=== PATIENT | female | born 1980 | race Caucasian/White ===

== ENCOUNTER 2018-06-17 18:00 | Observation (INO) ==
[2018-06-17 18:46] LABS: PT Patient Result 10.9 SECS; Partial Thromboplastin Time 22.5 SECS (0-40)
[2018-06-17 18:52] LABS: Basophils % 0.6 % (0.0-0.8); Eosinophils # 0.2 10*3/uL (0.0-0.87); Eosinophils % 2.8 % (0.00-10.9); Hematocrit 29.7 VOL% (35.7-47.0); Immature Granulocytes % 0.3 %; Immature Granulocytes Absolute 0.02 #; Lymphocytes % 29.6 % (21.3-54.2); Mean Corpuscular HGB Conc 27.3 GM/DL (32-36); Mean Corpuscular Hemoglobin 17 PG (27-34); Mean Corpuscular Volume 60.5 FL (87-102); Monocytes # 0.5 10*3/uL (0.11-0.8); Monocytes % 7.6 % (1.7-12.7); Neutrophils % 59.1 % (38.7-73.9); Platelet Count 176 T/CUMM (130-400); Red Blood Count 4.91 MC/CUMM (3.8-5.5); Red Cell Distribution Width 21.1 % (9.3-17.3); White Blood Count 6.8 T/CUMM (4-12)
[2018-06-17 18:56] LABS: Hemoglobin 8.1 GM/DL (12.0-16.0)
[2018-06-17 19:00] LABS: Albumin 3.7 G/DL (3.4-5.0); Bilirubin,Total 0.5 MG/DL (0.2-1.0); Calcium 8.2 MG/DL (8.5-10.1); Osmolality,Calculated 286.1 MOS/KG (273-304); Total Protein 6.8 G/DL (6.4-8.3)
[2018-06-17] MEDS ORDERED: ALUM/MAG/SIMETH/LIDO VISC 1:1 30 ML BOTTLE PO STA (20:04)
[2018-06-17] MEDS ORDERED: ONDANSETRON 4 MG/2 ML VIAL IV STA (20:04)
[2018-06-17] MEDS ORDERED: MORPHINE 4 MG/1 ML VIAL IV STA (20:04)
[2018-06-17] MEDS ORDERED: NITROGLYCERIN 2% OINT 1 INCH/GM PACK TOP STA (20:04)
[2018-06-17 20:11] LABS: Anisocytosis 2+; Hypochromasia 3+; Ovalocytes 2+
[2018-06-17 20:13] LABS: Elliptocytes 1+
[2018-06-17 20:16] LABS: Poikilocytosis 1+
[2018-06-17 20:17] LABS: Platelet Estimate Adequate; Schistocytes Few
[2018-06-17] MEDS ORDERED: MAGNESIUM SULF RIDER 2 GM in PREMIX 1 EACH IV PRN (20:57)
[2018-06-17] MEDS ORDERED: ZALEPLON 5 MG CAPSULE PO PRN (20:57)
[2018-06-17] MEDS ORDERED: MAGNESIUM SULF RIDER 4 GM in PREMIX 1 EACH IV PRN (20:57)
[2018-06-17] MEDS ORDERED: diphenhydrAMINE CAP 25 MG CAPSULE PO PRN (20:57)
[2018-06-17] MEDS ORDERED: ACETAMINOPHEN 325 MG TABLET PO PRN (20:57)
[2018-06-17] MEDS ORDERED: NICOTINE 21 MG/24 HR PATCH TRANSDERM PRN (20:57)
[2018-06-17] MEDS ORDERED: ONDANSETRON 4 MG/2 ML VIAL IV PRN (20:57)
[2018-06-17 21:33] LABS: Risk Ratio 2.21; Thyroid Stimulating Hormone 0.986 uIU/ml (0.358-3.74)
[2018-06-18 00:59] LABS: Barbiturates Screen,Urine Negative (Negative); Benzodiazepines Screen,Urine Negative (Negative); Cannabinoid Screen,Urine Negative (Negative); Opiate Screen,Urine Positive (Negative); Phencyclidine Screen,Urine Negative (Negative)
[2018-06-18] MEDS: MORPHINE 4 MG/1 ML VIAL IV PRN ×2 (01:10→06:21)
[2018-06-18] MEDS ORDERED: PNEUMOCOCCAL VACCINE (23 VALENT) 0.5 ML VIAL IM ONE (03:59)
[2018-06-18 05:05] LABS: Calcium 7.9 MG/DL (8.5-10.1); Osmolality,Calculated 286.1 MOS/KG (273-304); Potassium 3.6 MMOL/L (3.5-5.1)
[2018-06-18 06:00] LABS: Basophils # 0.1 10*3/uL (0.0-0.2); Basophils % 0.9 % (0.0-0.8); Eosinophils # 0.2 10*3/uL (0.0-0.87); Eosinophils % 3.2 % (0.00-10.9); Immature Granulocytes % 0.4 %; Immature Granulocytes Absolute 0.03 #; Lymphocytes # 2.7 10*3/uL (1.4-4.0); Lymphocytes % 38.9 % (21.3-54.2); Mean Corpuscular Hemoglobin 17 PG (27-34); Mean Corpuscular Volume 60.4 FL (87-102); Monocytes # 0.6 10*3/uL (0.11-0.8); Monocytes % 8.7 % (1.7-12.7); Neutrophils # 3.3 10*3/uL (1.4-7.4); Neutrophils % 47.9 % (38.7-73.9); Platelet Count 150 T/CUMM (130-400); Red Blood Count 4.14 MC/CUMM (3.8-5.5); Red Cell Distribution Width 20.9 % (9.3-17.3); White Blood Count 6.9 T/CUMM (4-12)
[2018-06-18] MEDS ORDERED: SODIUM CHLORIDE 0.9% 1,000 ML IV PRN (07:03)
[2018-06-18 08:11] LABS: Hematocrit 25.9 VOL% (35.7-47.0)
[2018-06-18 08:12] LABS: Hemoglobin 7.1 GM/DL (12.0-16.0)
[2018-06-18] MEDS ORDERED: amLODIPine 10 MG TABLET PO SCH (09:00)
[2018-06-18] MEDS ORDERED: PANTOPRAZOLE 40 MG TABLET PO SCH (09:00)
[2018-06-18] MEDS ORDERED: ENOXAPARIN 40 MG/0.4 ML SYRINGE SUBCUT SCH (09:00)
[2018-06-18 09:11] LABS: Basophils # 0.1 10*3/uL (0.0-0.2); Basophils % 0.7 % (0.0-0.8); Eosinophils # 0.2 10*3/uL (0.0-0.87); Eosinophils % 3.3 % (0.00-10.9); Hematocrit 26.1 VOL% (35.7-47.0); Immature Granulocytes % 0.3 %; Immature Granulocytes Absolute 0.02 #; Lymphocytes # 2.5 10*3/uL (1.4-4.0); Lymphocytes % 36.4 % (21.3-54.2); Mean Corpuscular HGB Conc 26.8 GM/DL (32-36); Mean Corpuscular Hemoglobin 16 PG (27-34); Monocytes # 0.6 10*3/uL (0.11-0.8); Monocytes % 8.8 % (1.7-12.7); Neutrophils # 3.4 10*3/uL (1.4-7.4); Neutrophils % 50.5 % (38.7-73.9); Platelet Count 147 T/CUMM (130-400); Red Blood Count 4.28 MC/CUMM (3.8-5.5); Red Cell Distribution Width 20.7 % (9.3-17.3); White Blood Count 6.7 T/CUMM (4-12)
[2018-06-18 09:20] LABS: % Iron Saturation 3.8 % (18-50); Ferritin 5.7 ng/ml (8-252)
[2018-06-18 09:36] LABS: Eosinophils 2 % (0-10); Lymphocytes 31 % (20-55); Platelet Estimate Adequate; Segmented Neutrophils 63 % (50-85); Total Cells Counted 100
[2018-06-18 09:37] LABS: Ovalocytes Few; Poikilocytosis 1+
[2018-06-18 09:38] LABS: Anisocytosis 2+
[2018-06-18 16:02] LABS: Hematocrit 33.1 VOL% (35.7-47.0); Hemoglobin 9.6 GM/DL (12.0-16.0)
[2018-06-18 16:46] VITALS: BP 134/81
== END 2018-06-18 19:09 | disposition home or self-care (01) ==
LOC: N.ED 18:00 → N.EDINP 18:00 → N.TELES 21:23
PROVIDERS: ADMIT Internal Medicine; ATTEND Internal Medicine